=== PATIENT | female | born 1945 | race Hispanic/Latino ===

== ENCOUNTER 2016-11-19 22:23 | Emergency (ER) | payer BC ==
[2016-11-20 00:31] LABS: Albumin 3.7 g/dL (3.9-5); Albumin/Globulin Ratio 0.8 %; BUN/Creatinine Ratio 16.36; Bilirubin,Total 0.3 mg/dL (0.1-1.2); Calcium 9.1 mg/dL (8.4-10.2); Chloride 100.3 mmol/L (98-107); Potassium 4.1 mmol/L (3.6-5.0); Total Protein 8.3 g/dL (6.3-8.2)
[2016-11-20 00:52] LABS: Basophils % (Auto) 0.4 % (0.0-1.8); Eosinophils % (Auto) 1.2 % (0.0-4.3); Hematocrit 29.2 % (30.3-42.9); Hemoglobin 9.1 gm/dl (10.1-14.3); Mean Corpuscular HGB Conc 31 % (30-34); Mean Corpuscular Volume 74 fl (79-97); Platelet Count 343 K/mm3 (140-440); Red Blood Count 3.94 M/mm3 (3.65-5.03); Red Cell Distribution Width 17.8 % (13.2-15.2); White Blood Count 8.2 K/mm3 (4.5-11.0)
[2016-11-20 01:00] LABS: Mean Corpuscular Hemoglobin 23 pg (28-32)
--- NOTE | 2016-11-20 09:45 | Emergency Department Report ---
Chief Complaint: Medical Clearance Stated Complaint: FATIGUE Time Seen by Provider: 11/20/16 09:36 - HPI History of Present Illness: Patient here reported that shehad2 days ago. She said her nose bleed for 1.[address] Duran and was sent to the emergency room for admission. He called and told her hemoglobin was 8.5. She says she feels tired and fatigued. Also complaining of headache at 5 out of 10. Denies any nausea vomiting. Denies any fever or chills. - ROS Review of Systems: All systems are negative unless stated in HPI above. - Exam Vital Signs: Vital Signs 11/19/16 23:31 Temperature 99.1 F Pulse Rate 60 Respiratory 18 Rate Blood Pressure 180/80 O2 Sat by Pulse 96 Oximetry Physical Exam: General: This is a 62-year-old female well-nourished well-developed in no acute distress. CV: S1,S2. RRR Lungs:CTAB MSE screening note: Focused history and physical exam performed. Due to findings the following was ordered:see [facility] ED Medical Decision Making - Lab Data Result diagrams: 11/19/16 23:48 11/19/16 23:48 - Medical Decision Making Medical decision making: Patient seen by provider in triage area. Appropriate protocol activated and patient to main ED to be seen by physician. ED Disposition for MSE Condition: Stable
[2016-11-20 10:52] VITALS: BP 147/72
--- NOTE | 2016-11-20 11:25 | Emergency Department Report ---
HPI - General Chief Complaint: Medical Clearance Time Seen by Provider: 11/20/16 09:36 - HPI HPI: The patient is a 70-year-old female who presents for evaluation of generalized weakness and fatigue. The patient has a known history of anemia. The patient states that she was informed to present to the ER by her primary care physician , secondary to an outpatient lab testing discovering her hemoglobin to be 8.5. She says that she has experienced progressive generalized weakness and fatigue with exertion for many weeks, and that for the past week her symptoms have been severe. Her fatigue and weakness is exacerbated with attempting exertion, protecting ambulation, And relieved with rest. ED Past Medical Hx - Past Medical History Hx Hypertension: Yes - Surgical History Hx Cholecystectomy: Yes - Social History Smoking Status: Former Smoker Substance Use Type: None - Medications Home Medications: Home Medications Medication Instructions Recorded Confirmed Last Taken Type Hydrochlorothiazide [HCTZ] 25 mg PO QDAY 01/22/16 01/22/16 Unknown History Telmisartan [Micardis] 80 mg PO QDAY 01/22/16 01/22/16 Unknown History Clindamycin [Clindamycin CAP] 150 mg PO Q6HR #30 capsule 11/20/16 Unknown Rx Ferrous Sulfate [Feosol 325 MG tab] 325 mg PO QDAY #90 tablet 11/20/16 Unknown Rx Potassium Chloride [K-Dur] 10 meq PO QDAY 11/20/16 11/20/16 Unknown History ED Review of Systems ROS: Stated complaint: FATIGUE Other details as noted in HPI Constitutional: denies: fever, reports generalized weakness and fatigue with exertion ENT: denies: throat or neck pain Respiratory: denies: cough, shortness of breath Cardiovascular: denies: chest pain Endocrine: denies unexplained weight loss or gain Gastrointestinal: denies: abdominal pain, nausea Genitourinary: denies: dysuria Musculoskeletal: denies: leg swelling Skin: denies: rash Neurological: denies: headache Hematological/Lymphatic: denies: easy bleeding or easy bruising Psych: denies sadness or hopelessness Physical Exam - Physical Exam Vital Signs: Vital Signs 11/19/16 11/20/16 11/20/16 23:31 10:49 10:54 Temperature 99.1 F Pulse Rate 60 62 Respiratory 18 16 15 Rate Blood Pressure 180/80 Blood Pressure 147/72 [Right] O2 Sat by Pulse 96 100 100 Oximetry Physical Exam: General: well-nourished, well-developed, no acute distress Head: Normocephalic, atraumatic Eyes: normal sclera, EOMI, PERRL ENT: Mucous membranes are pale and dry Neck: No neck stiffness, no cervical adenopathy Respiratory: Breath sounds equal bilaterally, no wheezing, rales, or rhonchi Cardio: S1 and S2 present, no murmurs, rubs, gallops, capillary refill is delayed Abdomen: Normoactive bowel sounds, soft abdomen, no rigidity, no guarding or rebound tenderness Chest WALL/Back: No tenderness to palpation of the chest wall, no CVA tenderness with percussion Musc: No pitting edema Skin: No rash Neuro: Alert oriented 3, no facial drooping, normal speech no sensation or motor deficit in the arms or legs, reflexes 2+ symmetric, no gross neuro deficits Psych: Normal affect ED Course Vital Signs 11/19/16 11/20/16 11/20/16 23:31 10:49 10:54 Temperature 99.1 F Pulse Rate 60 62 Respiratory 18 16 15 Rate Blood Pressure 180/80 Blood Pressure 147/72 [Right] O2 Sat by Pulse 96 100 100 Oximetry ED Medical Decision Making - Lab Data Result diagrams: 11/19/16 23:48 11/19/16 23:48 - Medical Decision Making The patient was seen and examined by myself. The patient is placed on a monitor technician and continuous pulse ox. On initial evaluation, the patient was found to be in no distress. Evaluation orders were placed. The patient was found to have hemoglobin of 9, not concerning for need for transfusion. The patient was reevaluated and reported that she was asymptomatic and only presented to the emergency department because her primary care physician instructed her to. She states that she would like to go home, and that she feels at her baseline in recent months. The patient is stable for discharge with outpatient follow-up. The patient is given follow-up and return instructions. The patient expressed understanding and agreed with the plan. The patient is discharged in stable condition. Critical care attestation.: If time is entered above; I have spent that time in minutes in the direct care of this critically ill patient, excluding procedure time. ED Disposition Clinical Impression: Symptomatic anemia, Orthostatic lightheadedness Disposition: DISCHARGED TO HOME OR SELFCARE Is pt being admited?: No Does the pt Need Aspirin: No Condition: Stable Instructions: Iron Deficiency Anemia (ED), Lightheadedness (ED), Iron Rich Diet (ED) Prescriptions: Clindamycin [Clindamycin CAP] 150 mg PO Q6HR #30 capsule Ferrous Sulfate [Feosol 325 MG tab] 325 mg PO QDAY #90 tablet Referrals: PRIMARY CARE, [Primary Care Provider] - 3-5 Days Time of Disposition: 11:20
== END 2016-11-20 12:00 | disposition home or self-care (01) ==
LOC: ED 22:23
DX: D64.9 Anemia, unspecified (principal); R42 Dizziness and giddiness; I10 Essential (primary) hypertension; Z87.891 Personal history of nicotine dependence
CPT/HCPCS: 36415; 80053; 83550; 85025; 99283

== ENCOUNTER 2019-12-21 15:45 | Outpatient (CLI) | payer MEDICARE ==
--- NOTE | 2019-12-21 16:47 | XRay Report ---
CHEST 2 VIEWS INDICATION: SOB. COMPARISON: 01/22/2016. FINDINGS: Support devices: None. Heart: Within normal limits. Lungs/Pleura: No acute air space or interstitial disease. No significant pleural effusion. IMPRESSION: No acute findings. Signer Name: Heri Hallman MD Signed: 12/21/2019 4:42 PM Workstation Name: [id number]
== END 2019-12-21 15:46 | disposition home or self-care (01) ==
LOC: XRAY 15:45
PROVIDERS: ATTEND Internal Medicine
DX: R06.02 Shortness of breath (principal)
CPT/HCPCS: 71046